=== PATIENT | female | born 1990 | race Caucasian/White ===

== ENCOUNTER 2020-05-26 12:21 | Emergency (ER) | payer OTHER ==
--- OUTSIDE RECORDS SUMMARY | 2020-05-26 12:23 | XMS REPORT | Continuity of Care Document ---
:1990 Author Organization [facility] t Address [address] [place] [id number] Care Team Providers Name Role Phone DR CORTES Attending Clinician Unavailable DR CORTES Admitting Clinician Unavailable Problems This patient has no known problems. Allergies, Adverse Reactions, Alerts This patient has no known allergies or adverse reactions. Medications This patient has no known medications. Procedures This patient has no known procedures. Encounters Start End Encounter Admission Attending Care Care Encounter Source Date/Time Date/Time Type Type Clinicians Facility Department ID 2017-03-14 2017-03-14 Outpatient C VIJAYA KOLB [facility] [id number] [facility] 09:36:00 13:20:00 [facility] Results Test Description Test Time Test Comments Results Result [facility] e Comments MRI LOW EXT JOINT 2017-02-26 Exam: MRI of the left W/O CONTRAST*HSE* 15:30:54 knee without contrastHistory: Pain with internal derangementLocation: [id number]: High-resolution multiplanar multiecho imaging of the left knee wasperformed without contrast.Findings:Normal -appearing medial and lateral meniscus without tear or fraying.Normal appearing anterior and posterior cruciate ligaments.Normal appearing medial and lateral collateral ligaments.No evidence of osteochondral injury. Mild lateral tilt of the patella withoutsignificant chondromalacia.Normal appearing intra-articular popliteus tendon and iliotibial band.Small effusion noted. Extensor mechanism is intact.Elongated 3.3 x 0.4 cm Monroy's cyst noted.Impression:No evidence of internal derangement. Small elongated Monroy's cyst.Mild lateral tilt of the patella with small effusion. No significantchondromalaci a.
[2020-05-26 13:20] LABS: Absolute Lymphocytes (CBC) 1.4 K/uL (0.7-4.9); Basophils % 0.4 % (0-1.3); Hematocrit 43.3 % (36.0-45.0); Lymphocytes % 21.9 % (15.3-44.8); MPV 9.1 fL (7.6-11.3); RBC Red Blood Cell Count 4.89 M/uL (3.86-4.86)
[2020-05-26 13:22] LABS: Protime INR 1.14
[2020-05-26] MEDS ORDERED: NA CHLORIDE 0.9% 1,000 ML ONE ×2 (13:23→14:57)
--- NOTE | 2020-05-26 13:37 | RAD REPORT ---
EXAM DESCRIPTION: RAD - Chest Single View - 05/26/2020 1:24 pm CLINICAL HISTORY: CHEST PAIN COMPARISON: None TECHNIQUE: AP portable chest image was obtained 05/26/2020 1:24 pm . FINDINGS: Lungs are clear. Heart and vasculature are normal. No measurable pleural effusion and no p neumothorax. No acute bony abnormality seen. No acute aortic findings suspected. IMPRESSION: No acute cardiopulmonary process.
[2020-05-26 13:43] LABS: ALT/SGPT 18 U/L (12-78); AST/SGOT 13 U/L (15-37); Albumin 4.5 g/dL (3.4-5.0); Alkaline Phosphatase 85 U/L (45-117); BUN Blood Urea Nitrogen 8 mg/dL (7-18); Bicarbonate 23 mmol/L (21-32); Bilirubin Direct 0.2 mg/dL (0-0.2); Bilirubin Total 0.6 mg/dL (0.2-1.0); Glucose Level 78 mg/dL (74-106); Magnesium 2.3 mg/dL (1.8-2.4); NT PRO-BNP 26 pg/mL (<125); Potassium 3.5 mmol/L (3.5-5.1); Protein, Total 8.2 g/dL (6.4-8.2); Sodium Level 140 mmol/L (136-145); Troponin (Emerg Dept Use Only) < 0.02 ng/mL (0.0-0.045)
--- NOTE | 2020-05-26 15:39 | EDPHYS ---
Physician Documentation [facility] Name: Mariya Farias Age: 29 yrs Sex: Female : 1990 Arrival Date: 05/26/2020 Time: 12:23 Bed 17 Private MD: VERONIKA Physician Joe Colbert HPI: 05/26 14:46 This 29 yrs old Female presents to ER via Ambulatory with complaints of Chest jr8 Tightness, Lightheaded. 14:46 The patient or guardian reports chest pain that is located primarily in the chest jr8 diffusely. The pain does not radiate. Associated signs and symptoms: Pertinent positives: dizziness, palpitations. The chest pain is described as dull. Duration: The patient or guardian reports a single episode, that is still ongoing. Modifying factors: The symptoms are alleviated by nothing. the symptoms are aggravated by exertion, movement. Severity of pain: At its worst the pain was moderate in the emergency department the pain is unchanged. The patient has not experienced similar symptoms in the past. The patient has not recently seen a physician. 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 - Social history:: Smoking status: Patient denies any tobacco usage or history of. ROS: 14:46 Eyes: Negative for injury, pain, redness, and discharge, ENT: Negative for injury, jr8 pain, and discharge, Neck: Negative for injury, pain, and swelling, Respiratory: Negative for shortness of breath, cough, wheezing, and pleuritic chest pain, Abdomen/GI: Negative for abdominal pain, nausea, vomiting, diarrhea, and constipation, Back: Negative for injury and pain, MS/Extremity: Negative for injury and deformity, Skin: Negative for injury, rash, and discoloration. 14:46 Cardiovascular: Positive for chest pain, palpitations. 14:46 Neuro: Positive for dizziness. Exam: 14:46 Eyes: Pupils equal round and reactive to light, extra-ocular motions intact. Lids and jr8 lashes normal. Conjunctiva and sclera are non-icteric and not injected. Cornea within normal limits. Periorbital areas with no swelling, redness, or edema. ENT: Nares patent. No nasal discharge, no septal abnormalities noted. Tympanic membranes are normal and external auditory canals are clear. Oropharynx with no redness, swelling, or masses, exudates, or evidence of obstruction, uvula midline. Mucous membranes moist. Neck: Trachea midline, no thyromegaly or masses palpated, and no cervical lymphadenopathy. Supple, full range of motion without nuchal rigidity, or vertebral point tenderness. No Meningismus. Cardiovascular: Tachycardic with a normal S1 and S2. No gallops, murmurs, or rubs. Normal PMI, no JVD. No pulse deficits. Respiratory: Lungs have equal breath sounds bilaterally, clear to auscultation and percussion. No rales, rhonchi or wheezes noted. No increased work of breathing, no retractions or nasal flaring. Abdomen/GI: Soft, non-tender, with normal bowel sounds. No distension or tympany. No guarding or rebound. No evidence of tenderness throughout. Back: No spinal tenderness. No costovertebral tenderness. Full range of motion. Skin: Warm, dry with normal turgor. Normal color with no rashes, no lesions, and no evidence of cellulitis. MS/ Extremity: Pulses equal, no cyanosis. Neurovascular intact. Full, normal range of motion. Neuro: Awake and alert, GCS 15, oriented to person, place, time, and situation. Cranial nerves II-XII grossly intact. Motor strength 5/5 in all extremities. Sensory grossly intact. Cerebellar exam normal. Normal gait. 14:49 ECG was reviewed by the Attending Physician. jr8 Vital Signs: 12:32 BP 119 / 89; Pulse 100; Resp 16; Temp 97.8; Pulse Ox 100% on R/A; Weight 49.9 kg; hb Height 5 ft. 3 in. (160.02 cm); Pain 5/10; 13:28 BP 95 / 69 LA Supine (auto/reg); Pulse 87; Pulse Ox 100% on R/A; jp3 13:30 BP 102 / 74 LA Sitting (auto/reg); Pulse 92; Pulse Ox 100% on R/A; jp3 13:32 BP 103 / 83; Pulse 109; Pulse Ox 100% on R/A; jp3 14:05 BP 99 / 72; Pulse 113; Resp 18; Pulse Ox 100% on R/A; Pain 4/10; ks7 14:14 Pulse 85; Resp 18; Pulse Ox 100% on R/A; ks7 15:01 BP 104 / 70; Pulse 88; Resp 18; Pulse Ox 100% on R/A; Pain 0/10; ks7 15:31 BP 101 / 68; Pulse 101; Resp 18; Pulse Ox 100% on R/A; Pain 0/10; ks7 15:58 Pulse 95; Resp 18; Pulse Ox 100% ; Pain 0/10; ks7 12:32 Body Mass Index 19.49 (49.90 kg, 160.02 cm) hb MDM: 12:34 Patient medically screened. jr8 15:35 Data reviewed: vital signs, nurses notes, lab test result(s), EKG, radiologic studies, 8 plain films, and as a result, I will discharge patient. Data interpreted: Pulse oximetry: on room air is 100 %. Interpretation: normal. Counseling: I had a detailed discussion with the patient and/or guardian regarding: the historical points, exam findings, and any diagnostic results supporting the discharge/admit diagnosis, lab results, radiology results, the need for outpatient follow up, a family practitioner, to return to the emergency department if symptoms worsen or persist or if there are any questions or concerns that arise at home. Response to treatment: the patient's symptoms have markedly improved after treatment. ED course: Patient has orthostatic changes elevating her heart rate. After fluids feels much better and no longer has that palpitation/chest tightness feeling. Will send home to f/u with PCP. Knows to come back if worse . 05/26 13:01 Order name: Basic Metabolic Panel 05/26 13:01 Order name: CBC with Diff; Complete Time: 13:39 05/26 13:01 Order name: LFT's; Complete Time: 13:44 05/26 13:01 Order name: Magnesium; Complete Time: 13:44 05/26 13:01 Order name: NT PRO-BNP; Complete Time: 13:44 05/26 13:01 Order name: PT-INR; Complete Time: 13:39 05/26 13:01 Order name: Troponin (emerg Dept Use Only); Complete Time: 13:44 05/26 13:01 Order name: XRAY Chest (1 view); Complete Time: 13:39 05/26 13:01 Order name: EKG; Complete Time: 13:02 05/26 13:01 Order name: Cardiac monitoring; Complete Time: 13:09 05/26 13:01 Order name: EKG - Nurse/Tech; Complete Time: 13:30 05/26 13:02 Order name: Basic Metabolic Panel; Complete Time: 13:44 EDMS 05/26 13:01 Order name: IV Saline Lock; Complete Time: 13:12 05/26 13:01 Order name: Labs collected and sent; Complete Time: 13:11 05/26 13:01 Order name: O2 Per Protocol; Complete Time: 13:11 05/26 13:01 Order name: O2 Sat Monitoring; Complete Time: 13:36 05/26 13:01 Order name: Orthostatics; Complete Time: 13:30 EC:49 Rate is 90 beats/min. Rhythm is regular, Sinus arrythmia. QRS [place] is Normal. PA jr8 interval is normal at 148 msec. QRS interval is normal at 74 msec. QT interval is normal at 437 msec. No Q waves. T waves are Normal. No ST changes noted. Clinical impression: Normal ECG. Interpreted by me. Reviewed by me. Administered Medications: Discontinued: NS 0.9% 1000 ml IV at 1000 ml once Discontinued: NS 0.9% 1000 ml IV at 1000 ml once 13:15 Drug: NS 0.9% 1000 ml Route: IV; Rate: 1000 ml; Site: right antecubital; ks7 14:50 Drug: NS 0.9% 1000 ml Route: IV; Rate: 1000 ml; Site: right antecubital; ks7 Disposition: 16:13 Co-signature as Attending Physician, Joe Colbert MD I agree with the assessment and marco plan of care. Disposition: 05/26/20 15:38 Discharged to Home. Impression: Chest pain, unspecified, Palpitations, Dehydration. - Condition is Stable. - Discharge Instructions: Nonspecific Chest Pain, Palpitations, Sinus Tachycardia. - Medication Reconciliation Form, Thank You Letter, Antibiotic Education, Prescription Opioid Use form. - Follow up: Private Physician; When: 1 - 2 days; Reason: Recheck today's complaints, Continuance of care, Re-evaluation by your physician. - Problem is new. - Symptoms have improved. Signatures: Dispatcher [employer] EDJoe Ballard MD MD cha Roszak, Josh, PA PA jr8 Mariya Villalobos, RN RN Dana Godoy RN RN ks7 Corrections: (The following items were deleted from the chart) 16:00 15:38 05/26/2020 15:38 Discharged to Home. Impression: Chest pain, unspecified; ks7 Palpitations; Dehydration. Condition is Stable. Forms are Medication Reconciliation Form, Thank You Letter, Antibiotic Education, Prescription Opioid Use. Follow up: Private Physician; When: 1 - 2 days; Reason: Recheck today's complaints, Continuance of care, Re-evaluation by your physician. Problem is new. Symptoms have improved. jr8
--- NOTE | 2020-05-26 15:39 | ER ---
Nurse's Notes [facility] Name: Mariya Farias Age: 29 yrs Sex: Female : 1990 Arrival Date: 05/26/2020 Time: 12:23 Bed 17 Private MD: Diagnosis: Chest pain, unspecified;Palpitations;Dehydration Presentation: 05/26 12:32 Chief complaint: Intermittent chest tightness and SOB x 5 days. Denies hb cough/fever/nausea. Coronavirus screen: At this time, the client does not indicate any symptoms associated with coronavirus-19. Ebola Screen: No symptoms or risks identified at this time. Initial Sepsis Screen: Does the patient meet any 2 criteria? HR > 90 bpm. No. Patient's initial sepsis screen is negative. Does the patient have a suspected source of infection? No. Patient's initial sepsis screen is negative. Risk Assessment: Do you want to hurt yourself or someone else? Patient reports no desire to harm self or others. Onset of symptoms was May 22, 2020. 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 - Social history:: Smoking status: Patient denies any tobacco usage or history of. Screenin:49 Abuse screen: Denies threats or abuse. Denies injuries from another. Nutritional ks7 screening: No deficits noted. Tuberculosis screening: No symptoms or risk factors identified. Fall Risk None identified. Assessment: 12:49 Also complains of shortness of breath. General: Appears uncomfortable, Behavior is ks7 calm, cooperative. Pain: Complains of pain in chest Pain does not radiate. Pain currently is 5 out of 10 on a pain scale. Quality of pain is described as pressure, Pain began x 5 days. Cardiovascular: Reports chest pain, shortness of breath, since Nikhil / 5 days ago. Respiratory: Breath sounds are clear bilaterally. in right upper lobe, left upper lobe, right middle lobe, left lower lobe, right lower lobe, left posterior upper lobe, right posterior upper lobe, left posterior lower lobe, right posterior middle lobe and right posterior lower lobe. 14:14 Reassessment: Patient states feeling better. Pain: Denies pain. ks7 Vital Signs: 12:32 BP 119 / 89; Pulse 100; Resp 16; Temp 97.8; Pulse Ox 100% on R/A; Weight 49.9 kg; hb Height 5 ft. 3 in. (160.02 cm); Pain 5/10; 13:28 BP 95 / 69 LA Supine (auto/reg); Pulse 87; Pulse Ox 100% on R/A; jp3 13:30 BP 102 / 74 LA Sitting (auto/reg); Pulse 92; Pulse Ox 100% on R/A; jp3 13:32 BP 103 / 83; Pulse 109; Pulse Ox 100% on R/A; jp3 14:05 BP 99 / 72; Pulse 113; Resp 18; Pulse Ox 100% on R/A; Pain 4/10; ks7 14:14 Pulse 85; Resp 18; Pulse Ox 100% on R/A; ks7 15:01 BP 104 / 70; Pulse 88; Resp 18; Pulse Ox 100% on R/A; Pain 0/10; ks7 15:31 BP 101 / 68; Pulse 101; Resp 18; Pulse Ox 100% on R/A; Pain 0/10; ks7 15:58 Pulse 95; Resp 18; Pulse Ox 100% ; Pain 0/10; ks7 12:32 Body Mass Index 19.49 (49.90 kg, 160.02 cm) hb Vitals: 12:49 Cardiac Rhythm Assessment Regular Sinus tach. ks7 ED Course: 12:23 Patient arrived in ED. bp1 12:33 Triage completed. hb 12:34 Lele Patel PA is PHCP. jr8 12:34 Joe Colbert MD is Attending Physician. jr8 12:34 Arm band placed on. hb 12:43 Dana Godoy, KARY is Primary Nurse. ks7 12:49 Resting quietly. ks7 12:49 Patient has correct armband on for positive identification. Bed in low position. Call ks7 light in reach. Side rails up X2. grade teacher on. Pulse ox on. NIBP on. 12:49 No provider procedures requiring assistance completed. Patient maintains SpO2 ks7 saturation greater than 95% on room air. 13:11 Basic Metabolic Panel Sent. ks7 13:12 Basic Metabolic Panel Sent. ks7 13:12 CBC with Diff Sent. ks7 13:12 LFT's Sent. ks7 13:12 Magnesium Sent. ks7 13:12 NT PRO-BNP Sent. ks7 13:12 PT-INR Sent. ks7 13:12 Troponin (emerg Dept Use Only) Sent. ks7 13:16 Initial lab(s) drawn, by me, sent to lab. Urine collected: clean catch specimen, clear, jp3 mark colored. Inserted saline lock: 20 gauge in right antecubital area, using aseptic technique. Blood collected. 13:19 ambulated to bathroom steady on feet. urine collected. ks7 13:24 XRAY Chest (1 view) In Process Unspecified. EDMS 13:30 Basic Metabolic Panel Sent. ks7 14:17 ED physician to see patient. provider in room updating pt on results and plan of care. ks7 15:58 IV discontinued, intact, bleeding controlled, No redness/swelling at site. Pressure ks7 dressing applied. Administered Medications: Discontinued: NS 0.9% 1000 ml IV at 1000 ml once Discontinued: NS 0.9% 1000 ml IV at 1000 ml once 13:15 Drug: NS 0.9% 1000 ml Route: IV; Rate: 1000 ml; Site: right antecubital; ks7 14:50 Drug: NS 0.9% 1000 ml Route: IV; Rate: 1000 ml; Site: right antecubital; ks7 Outcome: 15:38 Discharge ordered by . jr8 15:58 Discharged to home ambulatory. ks7 15:58 Condition: stable 15:58 Discharge instructions given to patient, Instructed on discharge instructions, follow up and referral plans. Demonstrated understanding of instructions, follow-up care, Prescriptions given X 16:00 Patient left the ED. ks7 Signatures: Dispatcher [employer] EDMS Lele Patel PA PA jr8 Mariya Villalobos, Arnulfo Scott RN jp3 Samina Melissa Kathleen, RN RN ks7
[2020-05-26 16:08] VITALS: TEMP 97.8; O2SAT 100
[2020-05-26 16:18] VITALS: BP 101/68
== END 2020-05-26 16:00 | disposition home or self-care (01) ==
LOC: ER 12:21
DX: E86.0 Dehydration (principal); R00.2 Palpitations; Z88.5 Allergy status to narcotic agent
CPT/HCPCS: 93005; 85025; 80048; 36415; 83735; 85610; 80076; 84484; 83880; 71045; 99285; J7030 ×2

== ENCOUNTER 2021-04-18 10:40 | Emergency (ER) | payer OTHER ==
--- OUTSIDE RECORDS SUMMARY | 2021-04-18 10:42 | XMS REPORT | Continuity of Care Document ---
:1990 Author Organization [facility] t Address [address] [place] [id number] Care Team Providers Name Role Phone DR [...] ID 2017-03-14 2017-03-14 Outpatient C VIJAYA KOLB [facility] [id number] [facility] 09:36:00 13:20:00 [facility] Results Test Description Test Time Test Comments Results Result [facility] e Comments MRI LOW EXT JOINT 2017-02-26 Exam: MRI of the left W/O CONTRAST*HSE* 15:30:54 knee without contrastHistory: Pain with internal derangementLocation: [id number]: High-resolution multiplanar multiecho imaging of the left knee wasperformed without contrast.Findings:Normal -appearing medial and lateral meniscus without tear or fraying.Normal appearing anterior and posterior cruciate ligaments.Normal appearing medial and lateral collateral ligaments.No evidence of osteochondral injury. Mild lateral tilt of the patella withoutsignificant chondromalacia.Normal appearing intra-articular popliteus tendon and iliotibial band.Small effusion noted. Extensor mechanism is intact.Elongated 3.3 x 0.4 cm Omnroy's cyst noted.Impression:No evidence of internal derangement. Small elongated Monroy's cyst.Mild lateral tilt of the patella with small effusion. No significantchondromalaci a.
[2021-04-18 11:53] LABS: Urine Blood Negative (Negative); Urine Glucose Negative (Negative); Urine Protein Negative (Negative); Urine Specific Gravity 1.015 (1.005-1.030); Urine pH 7.5 (5.0-7.0)
[2021-04-18 11:55] LABS: Absolute Lymphocytes (CBC) 1.1 K/uL (0.7-4.9); Basophils % 0.5 % (0-1.3); Hematocrit 41.9 % (36.0-45.0); Lymphocytes % 25.4 % (15.3-44.8); MPV 9.1 fL (7.6-11.3); RBC Red Blood Cell Count 4.68 M/uL (3.86-4.86)
[2021-04-18 11:56] LABS: Protime INR 1.12
--- NOTE | 2021-04-18 12:07 | RAD REPORT ---
EXAM DESCRIPTION: CT - Head Brain Wo Cont - 04/18/2021 11:59 am CLINICAL HISTORY: near syncope;Weakness Headache, drowsiness COMPARISON: No comparisons TECHNIQUE: All CT scans are performed using dose optimization technique as appropriate and may inclu de automated exposure control or mA/KV adjustment according to patient size. FINDINGS: No intracranial hemorrhage, hydrocephalus or extra-axial fluid collection.No areas of brai n edema or evidence of midline shift. The paranasal sinuses and mastoids are clear. The calvarium is intact. IMPRESSION: No acute intracranial abnormality.
[2021-04-18 12:08] LABS: ALT/SGPT 21 U/L (12-78); AST/SGOT 15 U/L (15-37); Albumin 4.4 g/dL (3.4-5.0); Alkaline Phosphatase 108 U/L (45-117); BUN Blood Urea Nitrogen 12 mg/dL (7-18); Bicarbonate 26 mmol/L (21-32); Bilirubin Direct 0.1 mg/dL (0-0.2); Bilirubin Total 0.6 mg/dL (0.2-1.0); Glucose Level 94 mg/dL (74-106); Magnesium 2.4 mg/dL (1.8-2.4); NT PRO-BNP 93 pg/mL (<125); Potassium 3.5 mmol/L (3.5-5.1); Sodium Level 139 mmol/L (136-145); Troponin (Emerg Dept Use Only) < 0.02 ng/mL (0.0-0.045)
[2021-04-18 12:16] LABS: Barbiturates NEGATIVE (NEGATIVE); Benzodiazepines NEGATIVE (NEGATIVE); Cocaine NEGATIVE (NEGATIVE); METHAMPHETAM NEGATIVE (NEGATIVE); Methadone NEGATIVE (NEGATIVE); Opiates NEGATIVE (NEGATIVE); Phencyclidine NEGATIVE (NEGATIVE); THC Cannibis NEGATIVE (NEGATIVE)
[2021-04-18] MEDS ORDERED: KETOROLAC 30 MG/ML INJ ONE (12:22)
--- NOTE | 2021-04-18 12:43 | RAD REPORT ---
EXAM DESCRIPTION: RAD - Chest Single View - 04/18/2021 12:21 pm CLINICAL HISTORY: PALPITATIONS Chest pain. COMPARISON: Chest Single View dated 05/26/2020 FINDINGS: Portable technique limits examination quality. The lungs are grossly clear. The heart is normal in size. No displaced fractures. IMPRESSION: No acute intrathoracic process suspected.
[2021-04-18 12:58] LABS: Urine Specific Gravity/Preg 1.015 (1.005-1.030)
[2021-04-18 13:38] LABS: T3 Free 2.53 pg/mL (2.18-3.98); Thyroid Stimulating Hormone 1.81 uIU/mL (0.360-3.740)
--- NOTE | 2021-04-18 14:23 | RAD REPORT ---
EXAM DESCRIPTION: CT - Chest For Pe Angio - 04/18/2021 1:54 pm CLINICAL HISTORY: Chest pain COMPARISON: None. TECHNIQUE: Dynamically enhanced axial 3 mm thick images of the chest were obtained during administra tion of <100> mL Isovue 370 IV contrast. Coronal and oblique reconstruction images were generated and reviewed. Exam utilizes a protocol for optimal evaluation of pulmonary arterial tree. Maximum intensity projections 3D imaging was utilized All CT scans are performed using dose optimization technique as appropriate and may include automated exposure control or mA/KV adjustment according to patient size. FINDINGS: A pulmonary embolus is not seen. A thoracic aortic aneurysm is not noted. A pleural effusion is not seen. A pericardial effusion is not seen. A lung consolidation is not present. IMPRESSION: Negative for a pulmonary embolism.
--- NOTE | 2021-04-18 15:08 | ER ---
Nurse's Notes [facility] Name: Mariya Farias Age: 30 yrs Sex: Female : 1990 Arrival Date: 04/18/2021 Time: 10:41 Bed 14 Private MD: Diagnosis: Palpitations;Weakness Presentation: 04/18 10:49 Chief complaint: Patient states: i live in [place] and was driving here to do tw2 some errands. my head and eyes started burning. 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 my heart started beating really fast and i felt like i was going to pass out. my left arm feels alok weak. i feel spacey. Coronavirus screen: At this time, the client does not indicate any symptoms associated with coronavirus-19. Ebola Screen: Patient denies travel to an Ebola-affected area in the 21 days before illness onset. Initial Sepsis Screen: Does the patient meet any 2 criteria? No. Patient's initial sepsis screen is negative. Does the patient have a suspected source of infection? No. Patient's initial sepsis screen is negative. Risk Assessment: Do you want to hurt yourself or someone else? Patient reports no desire to harm self or others. Onset of symptoms was April 18, 2021. 10:49 Method Of Arrival: Ambulatory tw2 10:49 Acuity: HEYDI 3 tw2 Triage Assessment: 10:51 General: Appears in no apparent distress. slender, well groomed, Behavior is calm, tw2 cooperative, appropriate for age. Pain: Denies pain. 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 - Social history:: Smoking status: . Screenin:27 Abuse screen: Denies threats or abuse. Nutritional screening: No deficits noted. tw2 Tuberculosis screening: No symptoms or risk factors identified. Fall Risk None identified. Assessment: 11:00 General: Appears in no apparent distress. slender. Pain: Denies pain. Neuro: No tr6 deficits noted. Cardiovascular: No deficits noted. Reports palpitations, pt reports feeling like her heart is racing at times. Respiratory: No deficits noted. GI: No deficits noted. : No deficits noted. EENT: Reports blurred vision periods of blurred vision earlier today. Derm: No deficits noted. Musculoskeletal: No deficits noted. 11:50 Reassessment: transported to CT via wheelchair. tr6 12:58 Reassessment: Anne HOWARD at bedside. tr6 13:49 Reassessment: pt transported to CT via stretcher. tr6 14:00 Reassessment: pt returned from CT. pt OOB independently to bathroom. tr6 Vital Signs: 10:49 BP 117 / 79; Pulse 93; Resp 17; Temp 98(TE); Pulse Ox 100% on R/A; Weight 52.16 kg (R); tw2 Height 5 ft. 3 in. (160.02 cm) (R); Pain 0/10; 12:41 BP 108 / 73; Pulse 85; Resp 18; Pulse Ox 100% on R/A; tr6 14:00 BP 99 / 68; Pulse 76; Resp 18; Pulse Ox 100% on R/A; tr6 10:49 Body Mass Index 20.37 (52.16 kg, 160.02 cm) tw2 ED Course: 10:41 Patient arrived in ED. ds1 10:50 Triage completed. tw2 10:51 Arm band placed on. tw2 11:11 Bed in low position. Call light in reach. Adult w/ patient. tw2 11:13 Joe Rodríguez PA is PHCP. cp 11:13 Zach Jonas MD is Attending Physician. cp 11:34 Tasha Medina, KARY is Primary Nurse. tr6 11:45 Inserted saline lock: 18 gauge in right antecubital area, using aseptic technique. tr6 Blood collected. 11:51 No provider procedures requiring assistance completed. tr6 15:08 Daniel Victoria MD is Referral Physician. cp Administered Medications: 15:51 Not Given (Patient Refused): TORadol - (ketorolac) 15 mg IVP once tr6 Outcome: 15:08 Discharge ordered by . cp 15:52 Patient left the ED. tr6 Signatures: Deana Calvo ds1 Joe Rodríguez PA PA cp Carri Feliciano RN RN tw2 Ramnanan, Tasha, RN RN tr6 Corrections: (The following items were deleted from the chart) 10:51 10:50 Home Meds: None; 10:51 10:50 PMHx: None;
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
[2021-04-18 16:40] VITALS: BP 99/68; O2SAT 100
--- NOTE | 2021-04-19 10:34 | EKG ---
Test Date: 2021-04-18 Test Time: 12:33:58 [employer] Machine: KARENT MEASUREMENT RESULTS: Intervals: Rate: 73 VA: 156 QRSD: 70 QT: 386 QTc: 425 [place]: P: 70 VA: 156 QRS: 72 T: 59 INTERPRETIVE STATEMENTS: Sinus rhythm with marked sinus arrhythmia Otherwise normal ECG Compared to ECG 05/26/2020 13:23:49 No significant changes Electronically Signed On 04-19-21 10:31:55 CDT by Flash Kapoor
== END 2021-04-18 15:52 | disposition home or self-care (01) ==
LOC: ER 10:40
DX: R00.2 Palpitations (principal); F41.9 Anxiety disorder, unspecified; Z88.5 Allergy status to narcotic agent
CPT/HCPCS: 85025; 80048; 36415; 83735; 81025; 85610; 85379; 80076; 84443; 81003; 84484; 84481; 83880; 80307; 70450; 71275; 71045; Q9967; 93005; 99283